=== PATIENT | female | born 1975 | race Caucasian/White ===

== ENCOUNTER 2018-08-14 12:48 | Emergency (ER) | payer MEDICAID, OTHER ==
[~2018-08-14] VITALS: Ht 157.5 cm; Wt 62.5 kg
[~2018-08-14 12:48] MED LIST: GABA600T2 PO
[2018-08-14 12:50] VITALS: BP 145/86
== END 2018-08-14 14:08 | disposition home or self-care (01) ==
LOC: ED 14:02
DX: A60.00 Herpesviral infection of urogenital system, unspecified (principal); B37.3 Candidiasis of vulva and vagina; Z88.6 Allergy status to analgesic agent; Z88.8 Allergy status to other drugs, medicaments and biological substances; Z72.9 Problem related to lifestyle, unspecified
CPT/HCPCS: 99283